=== PATIENT | female | born 1995 | race Caucasian/White ===

== ENCOUNTER 2020-04-17 20:20 | Inpatient (IN) | payer SELFPAY ==
[2020-04-17] VITALS (20 sets, daily range): BP systolic 112–137; BP diastolic 68–75; PULSE 109–158; RESP 16; TEMP 36.2–36.8; O2SAT 93–99; BMI 33.3
[2020-04-17] MEDS: magnesium sulfate premix 4 GM/100 ML PREMIX IV (19:45)
[2020-04-17] MEDS: lactated ringers 1,000 ML 75 ML IV (19:45)
[2020-04-17] MEDS: oxytocin 30 UNIT/500 ML BAG 600 UNIT IV (20:06)
[2020-04-17] MEDS: miSOPROStol 200 mcg Tablet 800 MCG PR (20:40)
--- NOTE | 2020-04-17 20:46 | P.HP_ITS ---
Providers/Chief Complaint Admitting Physician: Priya Justice MD Primary Care Provider: [facility] Chief Complaint: Contractions History of Present Illness Makayla Ballesteros is a 24 year old -1-1-3 at 30 weeks 6 days gestation by an 18-week ultrasound who presented to labor and delivery complaining of contractions. She was rating her pain at an 8 out of 10 but initially denied any bleeding or loss of fluid. When she was allowed up to the restroom she had spontaneous vaginal bleeding that was moderate. heart tones were 150s and began to decelerate. The nurse was on the phone with me giving an initial report when this happened so I immediately presented to labor and delivery. On my arrival the patient was still in the triage area. heart tones were 150s and had recovered from a 2-minute deceleration. There was good variability. The patient appeared to be in active labor with moderate vaginal bleeding. Sterile vaginal exam revealed bulging bag at the introitus. parts were not palpable despite being able to reach well into the pelvis. The patient was encouraged to continue breathing and not push while the staff raced to ready the triage room for delivery. Ultrasound was brought in to verify presentation but before is was up and operable the pt water spontanously ruptured with clear fluid. The infants head was then and the infant was delivered immediately in the bed. The cord was clamped and cut and the was taken by the pediatric nurse. The placenta was then delivered grossly intact and normal to inspection. It was sent to pathology. There was no obvious placental sign of abruption. There were no lacerations. Review of Systems General: Reports: Other (Obtained after the emergent delivery) Const: Denies: fever(s), chills or body aches Eyes: Denies: change in vision ENMT: Denies: throat pain Card: Denies: chest pain or palpitations Resp: Denies: dyspnea or productive cough GI: Reports: abdominal pain (Regular contractions every 3 to 5 minutes), nausea and vomiting : Reports: vaginal bleeding (Only once she was in the OB department); Denies: flank pain, difficulty voiding or vaginal discharge Musc: Denies: neck pain or back pain Skin/Breast: Denies: rash or pruritus Neuro: Denies: headache(s), numbness in extremities or weakness in extremities Dion/Lymph: Denies: easy bruising or easy bleeding All/Imm: Denies: urticaria or throat swelling PFSH Acute PFSH: Medical History (Updated 04/17/20 @ 21:08 by Priya Justice MD) Insulin dependent diabetes mellitus type IA Social History (Updated 04/17/20 @ 21:02 by Priya Justice MD) Smoking and tobacco status: never smoked Second hand smoke exposure: No Alcohol intake: never Substance/Drug Use: never Marital status: Number of children: 3 Zulema/Rastafari: [facility] Female Reproductive History: Date of last menstrual period: 08/09/19 control method: none : 5 Para: 3 (2112) Spontaneous abortions: Yes (1 during first ) Vitals/I&O/Wt Last Vital Signs Temp 97.2 F L 04/17/20 19:23 Pulse 118 H 04/17/20 20:25 BP 131/75 04/17/20 19:24 Pulse Ox 97 04/17/20 20:25 Physical Exam Const: COMMON NORMALS: well nourished GENERAL APPEARANCE: cooperative, well developed and in distress (Moderately uncomfortable) HENMT: COMMON NORMALS: normocephalic FACE & SINUS: normal facial exam Eye: COMMON NORMALS: Equal, round and reactive pupils present and EOMs intact bilaterally Neck/C-Spine: COMMON NORMALS: supple Lymph: LYMPHATIC: no lymphadenopathy noted Chest: COMMONS NORMALS: normal inspection of the chest Resp: COMMON NORMALS: normal respiratory effort AUSCULTATION: clear to auscultation bilaterally Cardio: COMMON NORMALS: regular rate and regular rhythm GI: PALPATION: Yes Other GI palpation findings present (Fundus firm at umbilicus) Extremity: COMMON NORMALS: no pedal edema GENERAL: No calf tenderness Neuro: COMMON NORMALS: patient oriented x3 Psych: COMMON NORMALS: mental status grossly normal A&P Assessment and plan (1) Insulin dependent diabetes mellitus type IA: Patient may continue her home medications of Lantus and Humalog. Her hemoglobin A1c was checked in January and was 7.0 Status: Acute (2) with 30 completed weeks gestation: Status: Acute (3) Spontaneous vaginal delivery: Routine care Status: Acute (4) delivery, delivered: Patient presented in active labor and began having having spontaneous vaginal bleeding. She had a precipitous vaginal vaginal delivery. is level 2 and will likely be shipped to a NICU. Status: Acute Attestations Medical Necessity Statement*: delivery and routine care Coding Level of Care Code Acute Residential Subcontractor for Chg Fwd Diagnoses Insulin dependent diabetes mellitus type IA E10.9 with 30 completed weeks gestation Z3A.30 Spontaneous vaginal delivery O80 delivery, delivered O60.10X0
[2020-04-17] MEDS: dextrose 5%-lactated ringers 1,000 ML 125 ML IV (21:34)
[2020-04-17 22:14] LABS: Basophils % 0.2 %; Eosinophils % 0.2 %; Hematocrit 39.5 % (37.0-47.0); Hemoglobin 12.6 g/dL (11.5-15.3); Lymphocytes # 0.7 10^3/uL (0.8-4.8); Lymphocytes % 8.4 %; Mean Corpuscular HGB Conc 31.9 g/dL (30.0-36.0); Mean Corpuscular Hemoglobin 29.6 pg (28.0-34.0); Mean Corpuscular Volume 92.7 fL (81-99); Monocytes # 0.8 10^3/uL (0.2-0.9); Monocytes % 8.7 %; Neutrophils # 7.09 10^3/uL (1.8-7.7); Neutrophils % 81.9 %; Nucleated Red Blood Cells % 0 %; Platelet Count 212 10^3/cmm (130-400); Red Blood Count 4.26 10^6/uL (4.1-5.3); Red Cell Distribution Width 11.9 % (12.1-15.1); White Blood Count 8.7 10^3/uL (4.0-10.0)
--- NOTE | 2020-04-17 22:23 | P.DS_ITS ---
Discharge Providers Date of Admission: 04/17/20 20:20 Date of Discharge: April 17, 2020 Attending Provider at Admission: Priya Justice MD Attending Provider at Discharge: Priya Justice MD Primary Care Provider: [facility] Diagnoses at Discharge Discharge Diagnosis (1) Insulin dependent diabetes mellitus type IA: Status: Acute (2) with 30 completed weeks gestation: Status: Acute (3) Spontaneous vaginal delivery: Status: Acute (4) delivery, delivered: Status: Acute Reason for Visit Reason for Visit: Contractions Hospital Course Hospital Course This is a 24 y/o G5 now P2214 who presented to L&D complaining of contractions. She was 30 weeks and 6 days gestation by an 18-week ultrasound. She had a precipitous vaginal delivery of a viable male APGARS 2 and 7. Due to the 's prematurity he required transfer to NICU. For this reason parents were anxious to follow him so they were requesting immediate discharge. She was given an extra dose of misoprostol prophylactically to prevent any excessive vaginal bleeding. She was doing well after delivery and was discharg ed home in stable condition. Physical Exam Const: COMMON NORMALS: patient oriented x3 HENMT: COMMON NORMALS: normocephalic HEAD & SCALP: normocephalic FACE & SINUS: normal facial exam Eye: COMMON NORMALS: Equal, round and reactive pupils present and EOMs intact bilaterally PUPIL: Yes Equal, round and reactive pupils present Chest: COMMONS NORMALS: normal inspection of the chest Resp: COMMON NORMALS: clear to auscultation bilaterally EFFORT & INSPECTION: Yes able to speak in complete sentences AUSCULTATION: clear to auscultation bilaterally Cardio: COMMON NORMALS: regular rate and regular rhythm RATE: regular rate RHYTHM: regular rhythm GI: COMMON NORMALS: Soft to palpation (Fundus firm U- 2) PALPATION: Yes Soft to palpation (Fundus firm U- 2) : SPECULUM EXAM - VAGINA: Yes vaginal bleeding (None with current fundal rub) OB/EXTERNAL & SPECULUM: vaginal bleeding (None with current fundal rub) Extremity: GENERAL: No calf tenderness and No deformity Neuro: COMMON NORMALS: patient oriented x3 and moves all extremities Psych: COMMON NORMALS: mental status grossly normal, cooperative and normal affect Skin: COMMON NORMALS: no rashes or lesions noted GENERAL SKIN EXAM: no rashes or lesions noted Discharge Data Data Completed and Pending: Pending at discharge Category Date Time Status Magnesium Level ( OB Only) Q6H Lab 04/18/20 01:45 Uncollected Labs from last 24 hours 04/17/20 19:45 WBC 8.7 RBC 4.26 Hgb 12.6 Hct 39.5 MCV 92.7 MCH 29.6 MCHC 31.9 RDW 11.9 L Plt Count 212 MPV 12.0 H Neut % (Auto) 81.9 Lymph % (Auto) 8.4 [place] % (Auto) 8.7 Eos % (Auto) 0.2 Baso % (Auto) 0.2 Neut # (Auto) 7.09 Lymph # (Auto) 0.7 L [place] # (Auto) 0.8 Eos # (Auto) 0.0 Baso # (Auto) 0.0 Nucleated RBC % (a uto) 0 Nucleated RBCs # 0.0 Vitals: Last Vital Signs Temp 97.2 F L 04/17/20 19:23 Pulse 113 H 04/17/20 21:12 BP 137/74 04/17/20 21:12 Pulse Ox 97 04/17/20 20:25 Discharge Plan Discharge Patient Disposition: Home Discharge Orders: Discharge Order (Routine); Ordered 04/17/20 Ordered By: Priya Justice Referrals: Priya Justice MD [Physician] - 1 month Discharge Diet: Usual diet Discharge Activity: Increase activity as tolerated Discharge Attestations Time Spent in Discharge Care*: less than 30 min Quality Metrics Clinical Quality Measures During this hospital stay, did patient experience: None Coding Level of Care Code Acute Sap Hana Developer for Chg Fwd Diagnoses Insulin dependent diabetes mellitus type IA E10.9 with 30 completed weeks gestation Z3A.30 Spontaneous vaginal delivery O80 delivery, delivered O60.10X0
[2020-04-17] MEDS: miSOPROStol 200 mcg Tablet 800 MCG PO (22:30)
[2020-04-17 23:07] LABS: Hepatitis B Surface Antigen Non-Reactive (Nonreactive)
[2020-04-17 23:08] LABS: HIV 1 & 2 Antibody Non-Reactive (Non-Reactiv); HIV 1 & 2 Antigen Non-Reactive (Non-Reactiv)
[2020-04-18 00:05] LABS: SARS Covid-2 Antigen Negative (Negative)
--- NOTE | 2020-04-18 03:15 | PC.NURSE ---
Notified Dr. Justice of heavy bleeding and clots. Orders to give 800 of Cytotec rectally.
== END 2020-04-17 23:45 | disposition home or self-care (01) | DRG 805 ==
LOC: OPOB 20:21 → OBGYN 20:21
PROVIDERS: Admitting Provider Family Medicine; Visit Provider Family Medicine
DX: O60.14X0 Preterm labor third trimester with preterm delivery third trimester, not applicable or unspecified (principal); O24.02 Pre-existing type 1 diabetes mellitus, in childbirth; Z37.0 Single live birth; Z3A.30 30 weeks gestation of pregnancy; O76 Abnormality in fetal heart rate and rhythm complicating labor and delivery; E10.9 Type 1 diabetes mellitus without complications
CPT/HCPCS: 59025; 59409; 85025; 87340; 87426; 87806; 99211; J3475

== ENCOUNTER 2023-05-29 01:42 | Inpatient (IN) | payer SELFPAY ==
[2023-05-28] VITALS (14 sets, daily range): BP systolic 94–134; BP diastolic 62–88; PULSE 102–129; TEMP 36.2–37.4; O2SAT 97–99; BMI 37.3
[2023-05-28] MEDS: terbutaline 1 mg/mL INJ 0.25 MG SUBCUT (23:48)
[2023-05-29] VITALS (56 sets, daily range): BP systolic 112–165; BP diastolic 59–95; PULSE 101–214; O2SAT 96–98
[2023-05-29] MEDS: betamethasone susp 6 mg/mL 1 mL (per mL) 12 MG IM (02:11)
[2023-05-29] MEDS: magnesium sulfate premix 4 GM/100 ML PREMIX IV (02:14)
[2023-05-29] MEDS: lactated ringers 1,000 ML 125 ML IV (02:16)
[2023-05-29] MEDS: magnesium sulfate premix 20 GM/500 ML BAG IV (02:49)
[2023-05-29 04:07] LABS: Basophils % 0.2 %; Eosinophils # 0.1 10^3/uL (0.0-0.8); Eosinophils % 0.7 %; Hematocrit 37.5 % (36-47); Lymphocytes # 1.3 10^3/uL (0.8-4.8); Lymphocytes % 14.8 %; Mean Corpuscular HGB Conc 33.3 g/dL (30-55); Mean Corpuscular Hemoglobin 30.5 pg (27-33); Mean Corpuscular Volume 91.5 fl (85-98); Mean Platelet Volume 12.2 fL (7.4-10.4); Monocytes # 0.7 10^3/uL (0.2-0.9); Monocytes % 7.3 %; Neutrophils # 6.77 10^3/uL (1.8-7.7); Neutrophils % 76.4 %; Nucleated Red Blood Cells % 0 %; Platelet Count 207 10^3/cmm (157-399); Red Cell Distribution Width 12.7 % (12.1-15.1); White Blood Count 8.86 10^3/uL (3.29-11.43)
--- NOTE | 2023-05-29 04:22 | P.TS_ITS ---
Transfer Summary Providers Date of Admission: 05/29/23 01:42 Date of Discharge/Transfer: 05/29/23 Attending Provider at Admission: Priya Justice MD Attending Provider at Transfer: Priya Justice MD Transfer Plans: Anticipated date of transfer: 05/29/23 . Receiving Facility: [facility] . Receiving Provider: Dr. Rosa . Reason for Visit Reason for Visit vaginal bleeding Hospital Course Hospital Course This is a 27-year-old -2-1-4 at 33 weeks 2 days gestation with a history of delivery and type 1 diabetes who presented complaining of regular contractions and vaginal bleeding. It turned out she only had 1 spot of blood on her underpants and did not even need to use a pad. Her contractions however were very regular about every 2 to 5 minutes and she was complaining that they were painful. The patient is somewhat stoic with a naturally flat affect and it is difficult to get her to answer questions directly. Her cervix on initial exam was 4 on the outer os 1 on the inner os with 40% effaced and -4 station. There was a scant amount of bleeding with exam. Unable to verify vertex. Unfortunately our ultrasound machine is not turning on currently so we cannot verify presentation. She was given a dose of terbutaline which did not do anything to the contractions. She was given a dose of betamethasone. She was then started on magnesium 4 g load with 2 g an hour. This spaced out her contractions to about every 9 minutes. Nearly 4 hours after her initial exam she was still micah every 7 to 9 minutes and complaining that they were getting stronger, however her cervical exam remained unchanged. Her cervix was still extremely posterior with a loose 1 inner os. Once I was assured the patient was not making significant cervical change I contacted [facility] for possible transfer. Accepting physician Dr. Rosa. labs A+ antibody negative, hepatitis B nonreactive, hepatitis C nonreactive, rubella immune, GC chlamydia not obtained, RPR nonreactive, UDS negative, initial A1c 7.7 most recent A1c on 05/10 was 6.9. The patient's fundal height measures very large for gestational age but she was having regular growth ultrasounds every 4 weeks and her last one approximately 2 to 3 weeks ago was within normal limits. Physical Exam Narrative: The patient is resting in bed quietly. Heart slightly tachycardic, lungs clear to auscultation, abdomen is taunt even between contractions, abdomen is nontender extremities have some edema but no calf tenderness Urinary Catheter Management: Zamora Latex: Cath Placed During This Visit: yes Urinary Catheter Date of Insertion: 05/29/23 Urinary Catheter Time of Insertion: 02:20 TS Data Studies Completed and Pending Pending at discharge Category Date Time Status Magnesium Level (OB Only) Q6 Lab 05/29/23 07:00 Uncollected Magnesium Level (OB Only) Q6 Lab 05/29/23 13:00 Uncollected Magnesium Level (OB Only) Q Lab 05/29/23 19:00 Uncollected Magnesium Level (OB Only) Q Lab 05/30/23 01:00 Uncollected Magnesium Level (OB Only) Q Lab 05/30/23 07:00 Uncollected Magnesium Level (OB Only) Q Lab 05/30/23 13:00 Uncollected Magnesium Level (OB Only) Q Lab 05/30/23 19:00 Uncollected Magnesium Level (OB Only) Q Lab 05/31/23 01:00 Uncollected Magnesium Level (OB Only) Q Lab 05/31/23 07:00 Uncollected Magnesium Level (OB Only) Q Lab 05/31/23 13:00 Uncollected Magnesium Level (OB Only) Q Lab 05/31/23 19:00 Uncollected Magnesium Level (OB Only) Q Lab 06/01/23 01:00 Uncollected Magnesium Level (OB Only) Q Lab 06/01/23 07:00 Uncollected Laboratory Last Values WBC 8.86 10^3/uL (3.29-11.43) 05/29/23 01:05 RBC 4.10 10^6/uL (3.85-5.65) 05/29/23 01:05 Hgb 12.50 g/dL (11.27-16.99) 05/29/23 01:05 Hct 37.5 % (36-47) 05/29/23 01:05 MCV 91.5 fl (85-98) 05/29/23 01:05 MCH 30.5 pg (27-33) 05/29/23 01:05 MCHC 33.3 g/dL (30-55) 05/29/23 01:05 RDW 12.7 % (12.1-15.1) 05/29/23 01:05 Plt Count 207 10^3/cmm (157-399) 05/29/23 01:05 MPV 12.2 fL (7.4-10.4) H 05/29/23 01:05 Neut % (Auto) 76.4 % 05/29/23 01:05 Lymph % (Auto) 14.8 % 05/29/23 01:05 [place] % (Auto) 7.3 % 05/29/23 01:05 Eos % (Auto) 0.7 % 05/29/23 01:05 Baso % (Auto) 0.2 % 05/29/23 01:05 Neut # (Auto) 6.77 10^3/uL (1.8-7.7) 05/29/23 01:05 Lymph # (Auto) 1.3 10^3/uL (0.8-4.8) 05/29/23 01:05 [place] # (Auto) 0.7 10^3/uL (0.2-0.9) 05/29/23 01:05 Eos # (Auto) 0.1 10^3/uL (0.0-0.8) 05/29/23 01:05 Baso # (Auto) 0.0 10^3/uL (0.0-0.1) 05/29/23 01:05 Nucleated RBC % (auto) 0 % 05/29/23 01:05 Nucleated RBCs # 0.0 /100WBC 05/29/23 01:05 Recent Clincial Data Last Vital Signs Temp 97.2 F L 05/28/23 22:15 Pulse 113 H 05/29/23 04:14 BP 140/77 05/29/23 04:14 Pulse Ox 98 05/29/23 01:09 Vital Signs Temp Pulse BP Pulse Ox 05/29/23 04:14 113 H 05/29/23 04:14 140/77 05/29/23 04:01 130/79 05/29/23 04:01 120 H 05/29/23 03:44 117 H 05/29/23 03:44 133/75 05/29/23 03:29 115 H 05/29/23 03:29 138/75 05/29/23 03:14 113 H 05/29/23 03:14 126/69 05/29/23 02:59 108 H 05/29/23 02:59 136/76 05/29/23 02:44 115 H 05/29/23 02:44 123/72 05/29/23 02:29 120 H 05/29/23 02:29 129/78 05/29/23 02:14 118 H 05/29/23 02:14 118/75 05/29/23 02:00 114 H 05/29/23 02:00 119/77 05/29/23 01:45 114 H 05/29/23 01:45 123/74 05/29/23 01:09 112 H 05/29/23 01:09 98 05/29/23 01:04 115 H 05/29/23 01:04 98 05/29/23 00:59 109 H 05/29/23 00:59 98 05/29/23 00:54 124 H 98 05/29/23 00:49 114 H 96 05/29/23 00:47 115 H 132/80 05/29/23 00:44 116 H 97 05/29/23 00:39 120 H 96 05/29/23 00:34 131 H 97 05/29/23 00:33 122 H 129/81 05/29/23 00:29 123 H 96 05/29/23 00:24 124 H 96 05/29/23 00:19 128 H 98 05/29/23 00:18 126 H 136/79 05/29/23 00:14 128 H 97 05/29/23 00:09 128 H 96 05/29/23 00:04 127 H 97 05/29/23 00:02 131 H 127/74 05/28/23 23:59 125 H 97 05/28/23 23:54 119 H 97 05/28/23 23:49 115 H 97 05/28/23 23:48 117 H 134/88 05/28/23 23:44 107 H 99 05/28/23 23:37 108 H 98 05/28/23 23:17 108 H 109/66 05/28/23 23:03 102 H 103/62 05/28/23 22:48 113 H 94/68 05/28/23 22:32 118 H 120/77 05/28/23 22:18 115 H 131/82 05/28/23 22:15 97.2 F L 05/28/23 22:03 123 H 133/82 05/28/23 21:49 129 H 119/80 Intake & Output/Weight 05/26/23 05/27/23 05/28/23 05/29/23 06:59 06:59 06:59 06:59 Intake Total 68.75 / 68.75 Output Total 110 / 110 Balance -41.25 / -41.25 Weight 83.915 kg Vitals Last Vital Signs Temp 97.2 F L 05/28/23 22:15 Pulse 113 H 05/29/23 04:14 BP 140/77 05/29/23 04:14 Pulse Ox 98 05/29/23 01:09 TS Medications Medications Calcium Gluconate (Calcium Gluconate 0.1 Gm/Ml 10% Sdv 10ml) 1 gm IVP ONCE PRN PRN Reason: Reversal of Magnesium Sulfate Magnesium Sulfate (Magnesium Sulfate Premix) 20 gm in 500 mls @ 50 mls/hr IV .Q10H [facility] Last Admin: 05/29/23 02:49 Dose: 50 mls/hr Dextrose/Lactated Ringer's (Dextrose 5%-Lactated Ringers) 1,000 mls @ 125 mls/hr IV .Q8H WANDA Lactated Ringer's (Lactated Ringers) 1,000 mls @ 125 mls/hr IV .Q8H WANDA Last Infusion: 05/29/23 02:49 Dose: 75 mls/hr Ondansetron HCl (Ondansetron 2 Mg/Ml Sdv 2 Ml) 4 mg IVP Q4H PRN PRN Reason: NAUSEA AND VOMITING Discontinued Medications Betamethasone Acet/Betameth SodPhos (Betamethasone Susp 6 Mg/Ml 1 Ml (Per Ml)) 12 mg IM ONCE ONE Stop: 05/29/23 01:07 Last Admin: 05/29/23 02:11 Dose: 12 mg Magnesium Sulfate (Magnesium Sulfate Premix) 4 gm in 100 mls @ 300 mls/hr IV ONCE ONE Stop: 05/29/23 01:03 Last Admin: 05/29/23 02:14 Dose: 300 mls/hr Terbutaline Sulfate (Terbutaline 1 Mg/Ml Inj) 0.25 mg SUBCUT ONCE ONE Stop: 05/28/23 23:04 Last Admin: 05/28/23 23:48 Dose: 0.25 mg Allergies No Known Allergies Allergy (Verified 05/28/23 22:58) Discharge Plan Discharge Patient Disposition: Xfer Short-Term Hosp Condition: Stable Patient Instructions: Opioid Safety Transfer Attestations Time Spent in Transfer Care: greater than 30 min Quality Metrics Clinical Quality Measures [ No reported AMI, CVA or VTE this stay] Coding Level of Care Code Acute Code for Emma Brady
--- NOTE | 2023-05-29 04:54 | USR_ITS ---
PROCEDURE INFORMATION: Exam: US , Limited Exam date and time: 05/29/2023 4:57 AM Age: 27 years old Clinical indication: Lmp or gestational age (in weeks): 33w 2d; Antepartum complications; Other: Assess for presentation; LABS AND CLINICAL REPORTS: Last menstrual period start date: 10/08/2022 Gestational age (Established): 33 w 2 d Estimated due date (Established): 07/15/2023 TECHNIQUE: Imaging protocol: Real-time ultrasound of the maternal uterus with image documentation. Exam focused on the clinical indication. COMPARISON: US OB >= 14 weeks fetus [id number] 03/14/2023 3:09 PM FINDINGS: Gestation: Single live intrauterine gestation. heart rate: 138 bpm. presentation: Cephalic. Placenta: Anterior grade 1 placenta without previa. Amniotic fluid: Amniotic fluid volume is normal. Amniotic fluid index: GREG is 23.83 cm. BIOMETRY: Gestational age (AUA): 33 w 2 d Estimated due date (AUA): 07/15/2023 MATERNAL: Cervix: Cervical length measures 4.13 cm. US/US OB limited [id number] IMPRESSION: Single live intrauterine gestation with estimated age of 33 weeks 2 days.
--- NOTE | 2023-05-29 04:55 | PM.HP ---
Providers/Chief Complaint Admitting Physician: Priya Justice MD Chief Complaint: vaginal bleeding History of Present Illness Makayla Ballesteros is a 27 year old female -2-1-4 at 33 weeks 2 days gestation who presented to labor and delivery complaining of spotting and contractions. She initially had scant spotting which transitioned to a small amount of bloody show with cervical exams. Her contractions however were every 2 to 5 minutes. She was given a dose of terbutaline but this did not do anything. She was then started on magnesium 4 g load and 2 g an hour. This did help space out her contractions somewhat to about every 9 minutes. Her initial cervical exam was 1 cm 50% -4 station. Her follow-up examination 3 hours later was essentially unchanged. Arrangements were made to have her shipped to [facility] in [place]. The patient is rather stoic and maintains a flat affect. I noticed that her pulse rate was going up and her blood pressure was increasing. Prior to transport arriving I rechecked the patient about 2 hours from her last examination and she was now a good 4 cm 90% effaced with a bulging bag and no palpable presenting part. Our floor ultrasound is not turning on. We have overhead called for ultrasound to come and see presentation. Medications/Allergies Allergies Allergy/AdvReac Type Severity Reaction Status Date / Time No Known Allergies Allergy Verified 05/28/23 22:58 PFSH Acute PFSH: Medical History (Updated 05/29/23 @ 05:05 by Priya Justice MD) Insulin dependent diabetes mellitus type IA Social History (Updated 04/17/20 @ 21:02 by Priya Justice MD) Smoking and tobacco/nicotine status: never used tobacco/nicotine Second hand smoke exposure: No Alcohol intake: never Substance/Drug Use: never Marital status: Number of children: 3 Zulema/Alevism: [facility] Female Reproductive History: : 6 Para: 3 (2112) Spontaneous abortions: Yes (1 during first ) Vitals/I&O/Wt Last Vital Signs Temp 97.2 F L 05/28/23 22:15 Pulse 121 H 05/29/23 04:45 BP 147/91 05/29/23 04:45 Pulse Ox 98 05/29/23 01:09 02/12/24 02/12/24 02/13/24 14:59 22:59 06:59 Intake Total 68.75 / 68.75 Output Total 110 / 110 Balance -41.25 / -41.25 Weight last 48 hrs Weight 83.915 kg Physical Exam Narrative: The patient is resting in bed. She does not seem to be in significant distress, you would not think that she is laboring other than the fact that she says she feels like she needs to push. Vaginal exam has mild bloody show, cervix is a good 4 cm, 90 % with a bbow. Urinary Catheter Management: Zamora Latex: Cath Placed During This Visit: yes Urinary Catheter Date of Insertion: 05/29/23 Urinary Catheter Time of Insertion: 02:20 Data 05/29/23 01:05 A&P Assessment and plan (1) Insulin dependent diabetes mellitus type IA: Her most recent A1c was on 05/10 and was 6.9 (2) with 33 completed weeks gestation: She was given 1 dose of betamethasone on admission. (3) labor in third trimester: She is continuing to progress and make cervical change despite magnesium. Unfortunately she is not stable enough for transfer. Ultrasound just verify that she is vertex. Expectant management of labor and delivery Attestations Medical Necessity Statement*: Expectant management of labor and delivery Coding Level of Care Code Acute Code for Chg Fwd Diagnoses Insulin dependent diabetes mellitus type IA E10.9 with 33 completed weeks gestation Z3A.33 labor in third trimester O60.03
[2023-05-29] MEDS: ampicillin 2,000 MG in sodium chloride 0.9% (plus) 50 ML 100 MG IV (07:44)
[2023-05-29] MEDS: oxytocin 30 UNIT/500 ML BAG 600 UNIT IV (08:21)
[2023-05-29] MEDS: lidocaine 2% INJ 20 mL INJECTION (08:27)
--- NOTE | 2023-05-29 08:58 | PC.NURSE ---
Dr. Justice asked this RN to get a blood sugar per patient report. Patient checked blood sugar and reported BG of 0218 at 0515 on 05/29/23
--- NOTE | 2023-05-29 08:59 | PM.DELIVERY ---
Delivery Note: Date of delivery: May 29, 2023 Procedure: Normal spontaneous vaginal delivery Estimated blood loss (mL): 300 Pre-Delivery Course: The patient had routine care at [facility]. Her was complicated by type 1 insulin-dependent diabetes mellitus and history of deliveries. Her most recent A1c was 05/10 and was 6.9. Her initial A1c at presentation to care was 7.7 labs: Blood type a positive antibody negative, hepatitis B nonreactive, hepatitis C nonreactive, HIV nonreactive, rubella immune, RPR nonreactive, UDS negative, GC chlamydia and Pap unknown as patient declined testing. GBS unknown. Delivery: This is a 27-year-old G6 now P2315 who presented to labor and delivery in active labor at 33 weeks and 1 day gestation. Attempt was made to slow down or stop her labor using magnesium. At first she seemed to respond so we were about to ship her to [place] but then she began to make significant cervical change. She declined an epidural for pain management. When she was about 9 cm dilated she had spontaneous rupture of membranes with clear fluid. A few minutes later she had a normal spontaneous vaginal delivery of a viable female infant at 33 weeks 2 days [facility]. The infant was suctioned at delivery. The cord was extremely short it was clamped and cut and the was handed to the awaiting pediatric team. The placenta was delivered what is suspected to be intact but with several elongated stringy membranes that were attached. There was a second-degree perineal laceration that was sutured using 3-0 chromic. Mother was doing well after delivery. Coding Level of Care Code Acute Code for Chg Jose Antonio
--- NOTE | 2023-05-29 09:35 | PC.NURSE ---
Pt up to bathroom with assistance. Void 250mL. Macy care performed. Gown, underwear, pad changed and pt back to bed
[2023-05-29] MEDS: acetaminophen 325 mg Tablet 650 MG PO (09:41)
[2023-05-29] MEDS: ibuprofen 800 mg tablet PO (09:49)
== END 2023-05-29 14:50 | disposition short-term general hospital (02) | DRG 805 ==
LOC: OPOB 01:43 → OBGYN 01:43
PROVIDERS: Absent Provider Family Medicine; Admitting Provider Family Medicine; Visit Provider Family Medicine
DX: O60.14X0 Preterm labor third trimester with preterm delivery third trimester, not applicable or unspecified (principal); O24.02 Pre-existing type 1 diabetes mellitus, in childbirth; Z37.0 Single live birth; Z3A.33 33 weeks gestation of pregnancy; O70.1 Second degree perineal laceration during delivery; E10.9 Type 1 diabetes mellitus without complications; Z79.4 Long term (current) use of insulin
CPT/HCPCS: 36415; 51702; 59025; 59409; 76815; 85025; 86850; 86900; 96372; 99211; J0290; J0702; J2590; J3105; J3475; J7120